=== PATIENT | female | born 1990 | race African-American/Black ===

== ENCOUNTER 2016-03-09 09:26 | Emergency (ER) | payer OTHER ==
[~2016-03-09] VITALS: Ht 154.9 cm; Wt 48.0 kg
[2016-03-09 09:29] VITALS: BP 124/70; PULSE 78; RESP 16; TEMP 97.8; O2SAT 100
[2016-03-09 09:51] VITALS: BP 131/59; PULSE 75; RESP 16; O2SAT 99
--- NOTE | 2016-03-09 10:07 | PD ---
HPI Chief Complaint: Complaint Time Seen by Provider: 10:00 Travel History International Travel<30 days: No Contact w/Intl Traveler<30days: No Traveled to known affect area: No History of Present Illness HPI Patient is a 25-year-old female who presents to emergency room with complaints of possible urinary tract infection. She reports that for the past 4 days, she has had increased dysuria, urinary urgency and frequency. Patient reports that she try to flush out her kidneys by drinking plenty of fluids, reports that she is still symptomatic. Patient reports that symptoms are worse today, and reports increased dysuria with urgency today. Patient reports that she has had history of urinary tract infections in the past, patient reports the symptoms feel exactly the same as when she was briefly diagnosed with urinary tract infection. Patient with no fevers or chills. Patient with no abdominal pain. Patient with no nausea or vomiting. Patient denies vaginal discharge or bleeding this time. PFSH Past Medical History Medical History: Denies Significant Hx Asthma: Yes Diminished Hearing: No Respiratory: Yes (ASTHMA) Tetanus Vaccination: < 5 Years ?: Unknown LMP: UNKNOWN : 0 Past Surgical History Surgical History: No Previous Surgery Family History Family History: Negative Social History Alcohol Use: No Tobacco Use: No Substance Use: No Allergies-Medications (Allergen,Severity, Reaction): Coded Allergies: No Known Allergies (Unverified , 03/09/16) Reported Meds & Prescriptions Reported Meds & Active Scripts Active No Active Prescriptions or Reported Medications Review of Systems General / Constitutional: No: Fever Eyes: No: Visual changes HENT: No: Headaches Cardiovascular: No: Chest Pain or Discomfort Respiratory: No: Shortness of Breath Gastrointestinal: No: Nausea, Vomiting, Diarrhea, Abdominal Pain Genitourinary: Positive: Urgency, Frequency, Dysuria, Hematuria, No: Hesitancy , Pelvic Pain, Flank Pain, Discharge, Vaginal Bleeding Musculoskeletal: No: Pain Skin: No Rash Neurologic: No: Weakness Psychiatric: No: Depression Endocrine: No: Polydipsia Hematologic/Lymphatic: No: Easy Bruising Physical Exam Narrative GENERAL: Well-appearing, no acute distress SKIN: Warm and dry. HEAD: Atraumatic. Normocephalic. ENT: Mucous membranes pink and moist. NECK: Trachea midline. No JVD. CARDIOVASCULAR: Regular rate and rhythm. No murmur appreciated. RESPIRATORY: No accessory muscle use. Clear to auscultation. Breath sounds equal bilaterally. GASTROINTESTINAL: Abdomen soft, non-tender, nondistended. Hepatic and splenic margins not palpable. MUSCULOSKELETAL: No obvious deformities. No clubbing. No cyanosis. No edema. Data Data Last Documented VS Vital Signs Date Time Temp Pulse Resp B/P Pulse Ox O2 Delivery O2 Flow Rate FiO2 03/09/16 09:51 75 16 131/59 99 03/09/16 09:29 97.8 Room Air Orders Urinalysis - C+S If Indicated (03/09/16 09:53) Ed Urine Pregnancytest Poc (03/09/16 09:53) Urine Culture (03/09/16 10:10) Labs Laboratory Tests Test 03/09/16 10:10 Urine Color YELLOW Urine Turbidity HAZY Urine pH 6.5 Urine Specific [place] 1.018 Urine Protein 30 mg/dL Urine Glucose (UA) NEG mg/dL Urine Ketones NEG mg/dL Urine Occult Blood LARGE Urine Nitrite NEG Urine Bilirubin NEG Urine Urobilinogen LESS THAN 2.0 MG/DL Urine Leukocyte Esterase LARGE Urine RBC /hpf Urine WBC /hpf Urine Squamous Epithelial 2 /hpf Cells Urine Bacteria RARE /hpf Urine Mucus FEW /lpf Microscopic Urinalysis Comment CULTURE INDICATED MDM Medical Decision Making Medical Screen Exam Complete: Yes Emergency Medical Condition: Yes Interpretation(s) Vital Signs Date Time Temp Pulse Resp B/P Pulse Ox O2 Delivery O2 Flow Rate FiO2 03/09/16 09:51 75 16 131/59 99 03/09/16 09:29 97.8 78 16 124/70 100 Room Air Differential Diagnosis UTI, cervicitis Narrative Course 25-year-old female who presents to emergency room for evaluation of possible UTI. Patient reports that she has been having increased dysuria, urinary urgency and frequency for the past 4 days. Patient reports that symptoms have been getting worse over the past couple days, patient reports that symptoms feel similar to when she's had urinary tract infections in the past. Patient here to see she has a urinary tract infection. Patient with no vaginal discharge or vaginal pain or abdominal pain at this time. UA ordered for evaluation of possible urinary tract infection. Patient with UTI and UA, will start patient on Macrobid. Discussed with patient need to follow up with cultures from today. Patient will follow-up with primary doctor and return to ER as needed. Diagnosis Primary Impression: UTI (urinary tract infection) Qualified Code: N30.01 - Acute cystitis with hematuria Patient Instructions: General Instructions Additional Instructions: Please take all antibiotics as prescribed. Please follow-up with primary care doctor and return to ER as needed Please follow-up with all CULTURES from today. Med/Other Pt SpecificInfo: Prescription(s) given Scripts Nitrofurantoin Monohydrate Macrocrystals (Macrobid)100 Mg [id number] Mg PO BID 10 Days Ref 0 Prov:Cinthia Byrd DO 03/09/16 Disposition: 01 DISCHARGE HOME Condition: Stable Cinthia Byrd DO Mar 09, 2016 10:07
[2016-03-09 10:37] LABS: BACTERIA, URINE RARE /hpf; BLOOD, URINE LARGE (NEG); COMMENT (UR) CULTURE INDICATED; CULTURE IF INDICATED CULTURE INDICATED; GLUCOSE,URINE NEG (NEG); KETONE, URINE NEG (NEG); MUCUS URINE FEW /lpf (OCC); NITRITE,URINE NEG (NEG); PH, URINE 6.5 (5.0-8.5); SQUAMOUS EPITHELIAL CELL URINE 2 /hpf (0-5); URINE COLOR YELLOW (YELLW/STRAW)
[2016-03-09] MEDS ORDERED: MACR100C2 PO (11:18)
[2016-03-09] MEDS ORDERED: NITROFURANTOIN MONOHYD MACROCR 100 MG CAP PO ONE (11:30)
== END 2016-03-09 11:35 | disposition home or self-care (01) ==
LOC: NEPA 09:26
DX: N39.0 Urinary tract infection, site not specified (principal); B96.20 Unspecified Escherichia coli [E. coli] as the cause of diseases classified elsewhere
CPT/HCPCS: 81001; 84703; 87077; 87086; 87186; 99283

== ENCOUNTER 2016-03-13 18:30 | Observation (INO) | payer OTHER ==
[~2016-03-13] VITALS: Ht 154.9 cm; Wt 48.0 kg
[~2016-03-13 18:30] MED LIST: MACR100C2 PO
[2016-03-13 18:36] VITALS: PULSE 108; RESP 34; O2SAT 97
[2016-03-13] MEDS ORDERED: RESP: ALBUTEROL 2.5 MG/IPRATROPIUM 0.5 MG NEB (SCH) ONE (18:39)
[2016-03-13 18:42] VITALS: O2SAT 100
[2016-03-13] MEDS: RESP: ALBUTEROL 2.5 MG/IPRATROPIUM 0.5 MG NEB (SCH) INH ×3 (18:42→18:45)
[2016-03-13] MEDS ORDERED: SODIUM CHLORIDE 0.9% FLUSH 5 ML FLUSH IVF PRN (18:45)
[2016-03-13] MEDS ORDERED: methylPREDNISolone SOD SUCC 125 MG/2 ML VIAL IVP ONE (18:45)
[2016-03-13 19:05] LABS: AUTOMATED NEUTROPHIL # 3.8 TH/MM3 (1.8-7.7); BASOPHIL % 0.7 % (0.0-2.0); EOSINOPHIL # 0.5 TH/MM3 (0-0.4); EOSINOPHIL % 6.6 % (0.0-4.0); HEMATOCRIT 40.6 % (35.0-46.0); HEMO FLAGS DIFF FINAL; LYMPH % 25.2 % (9.0-44.0); LYMPHOCYTE # 1.7 TH/MM3 (1.0-4.8); MEAN CELL VOLUME 88.3 FL (80.0-100.0); MEAN CORPUSCULAR HEMOGLOBIN 30.2 PG (27.0-34.0); MEAN CORPUSCULAR HGB CONC 34.2 % (32.0-36.0); NEUT % 54.5 % (16.0-70.0); PLATELET COUNT 277 TH/MM3 (150-450); RED CELL DISTRIBUTION WIDTH 12.9 % (11.6-17.2); WHITE BLOOD COUNT 6.9 TH/MM3 (4.0-11.0)
--- NOTE | 2016-03-13 19:12 | RADRPT ---
EXAM DATE/TIME: 03/13/2016 18:59 [facility] COMPARISON: No previous studies available for comparison. INDICATIONS : Respiratory distress for 2 days due to asthma. MEDICAL HISTORY : Asthma. SURGICAL HISTORY : None. ENCOUNTER: Initial ACUITY: 2 days PAIN SCORE: 2/10 LOCATION: Bilateral chest FINDINGS: A single view of the chest demonstrates the lungs to be symmetrically aerated without evidence of mas s, infiltrate or effusion. The cardiomediastinal contours are unremarkable. Osseous structures are intact. CONCLUSION: No acute disease. Silviano Miller MD FACR on March 13, 2016 at 19:11 Board Certified Radiologist. This report was verified electronically.
[2016-03-13 19:26] VITALS: BP 109/62; PULSE 127; RESP 22; TEMP 98.4; O2SAT 100
[2016-03-13 19:31] LABS: ANION GAP 9 MEQ/L (5-15)
[2016-03-13 19:33] LABS: ALKALINE PHOSPHATASE 65 U/L (45-117); ALT (GPT) 26 U/L (10-53); AST (GOT) 20 U/L (15-37); BICARBONATE 22.6 MEQ/L (21.0-32.0); BLOOD UREA NITROGEN 9 MG/DL (7-18); CHLORIDE 104 MEQ/L (98-107); GLOMERULAR FILTRATION RATE 94 ML/MIN (>89); POTASSIUM 3.8 MEQ/L (3.5-5.1); SODIUM (NA) 136 MEQ/L (136-145); TOTAL BILIRUBIN ADULT 0.7 MG/DL (0.2-1.0)
[2016-03-13 20:00] VITALS: O2SAT 98
[2016-03-13] MEDS ORDERED: LORazepam 2 MG/ML VIAL IV PUSH ONE (20:00)
[2016-03-13] MEDS ORDERED: RESP: ALBUTEROL 2.5 MG/IPRATROPIUM 0.5 MG NEB (SCH) NEB ONE (20:30)
[2016-03-13] MEDS ORDERED: SODIUM CHLOR 0.9% 1000 ML INJ 1,000 ML IV ONE (20:30)
[2016-03-13] MEDS ORDERED: ALBUTEROL SULFATE 90 MCG/ACT HFA 8 GM INHALER INH ONE (20:30)
[2016-03-13] MEDS ORDERED: INSPIREASE SPACER INH ONE (20:30)
[2016-03-13 21:20] LABS: BLOOD GAS VENOUS BASE EXCESS -3.5 mmol/L (-2-2); BLOOD GAS VENOUS HCO3 19 mmol/L (22-26); BLOOD GAS VENOUS O2 CONTENT 15.6 Vol % (9.0-17.0); BLOOD GAS VENOUS O2 HGB SAT 82 % (70-76); BLOOD GAS VENOUS PCO2 26 mmHg (44-48); BLOOD GAS VENOUS PO2 47 mmHg (35-40); BLOOD GAS VENOUS pH 7.49 (7.360-7.400); CRITICAL VALUE YES; TEMP CORR TO 98.6
[2016-03-13 21:21] LABS: FIO2 21 %; OXYGEN DEVICE ROOM AIR; STAT NO
[2016-03-13 21:49] VITALS: BP 111/61; PULSE 140; RESP 20; TEMP 98.9; O2SAT 100
--- NOTE | 2016-03-13 22:53 | PD ---
HPI Chief Complaint: Respiratory Distress Time Seen by Provider: 18:37 Travel History International Travel<30 days: No Contact w/Intl Traveler<30days: No Traveled to known affect area: No History of Present Illness HPI Patient is a 25-year-old female with a history of asthma presents to the emergency department with shortness of breath. Patient states she's been increasing shortness of breath over the past 2 days and is at a history of upper respiratory symptoms including cough and congestion. Denies any fevers. Patient does state that she gets Depo-Provera shot for control. Denies any long trips recently. On arrival patient is able to speak in only one or 2 words at a time very dyspneic appearing. PFSH Past Medical History Asthma: Yes Diminished Hearing: No Respiratory: Yes (ASTHMA) Tetanus Vaccination: < 5 Years Influenza Vaccination: Yes ?: Not LMP: DEPO : 0 Past Surgical History Surgical History: No Previous Surgery Social History Alcohol Use: No Tobacco Use: No Substance Use: No Allergies-Medications (Allergen,Severity, Reaction): Coded Allergies: No Known Allergies (Unverified , 03/09/16) Reported Meds & Prescriptions Reported Meds & Active Scripts Active Macrobid (Nitrofurantoin Monoh/Nitrofur Macro) 100 Mg Cap 100 Mg PO BID 10 Days Review of Systems Except as stated in HPI: all other systems reviewed are Neg Physical Exam Narrative GENERAL: Well-developed well-nourished in obvious respiratory distress. She is however protecting her own airway. Mostly nods and shakes her head stance are questions. SKIN: Warm and dry. HEAD: Atraumatic. Normocephalic. EYES: Pupils equal and round. No scleral icterus. No injection or drainage. ENT: No nasal bleeding or discharge. Mucous membranes pink and moist. NECK: Trachea midline. No JVD. CARDIOVASCULAR: Regular rate with tachycardia.. No murmur appreciated. 2+ bilateral equal pulses in all 4 cavities. RESPIRATORY: Intercostal and supraclavicular retractions, very faint breath sounds throughout her lung dominguez, inspiratory and expiratory wheezing. GASTROINTESTINAL: Abdomen soft, non-tender, nondistended. Hepatic and splenic margins not palpable. MUSCULOSKELETAL: No obvious deformities. No clubbing. No cyanosis. No edema. NEUROLOGICAL: Awake and alert. No obvious cranial nerve deficits. Motor grossly within normal limits. Normal speech. PSYCHIATRIC: Appropriate mood and affect; insight and judgment normal. Data Data Last Documented VS Vital Signs Date Time Temp Pulse Resp B/P Pulse Ox O2 Delivery O2 Flow Rate FiO2 03/13/16 21:49 98.9 140 20 111/61 100 Nasal Cannula 2 Orders Complete Blood Count With Diff (03/13/16 18:37) Comprehensive Metabolic Panel (03/13/16 18:37) Chest, Single Ap (03/13/16 18:37) Ecg Monitoring (03/13/16 18:37) Iv Access Insert/Monitor (03/13/16 18:37) Oximetry (03/13/16 18:37) Oxygen Administration (03/13/16 18:37) Methylprednisolone So Succ Inj (Solumedr (03/13/16 18:45) Albuterol-Ipratropium Neb (Duoneb Neb) (03/13/16 18:45) Sodium Chloride 0.9% Flush (Ns Flush) (03/13/16 18:45) Albuterol-Ipratropium Neb (Duoneb Neb) (03/13/16 18:39) D-Dimer (03/13/16 18:50) Blood Gas Venous (Vbg) (03/13/16 18:50) Lorazepam Inj (Ativan Inj) (03/13/16 20:00) Sodium Chlor 0.9% 1000 Ml Inj (Ns 1000 M (03/13/16 20:30) Albuterol-Ipratropium Neb (Duoneb Neb) (03/13/16 20:30) Albuterol Hfa Inh (Proair Hfa Inh) (03/13/16 20:30) Spacer/Device For Mdi (Inspirease For Md (03/13/16 20:30) Admit Order (Ed Use Only) (03/13/16 ) Labs Laboratory Tests Test 03/13/16 03/13/16 18:40 19:35 White Blood Count 6.9 TH/MM3 Red Blood Count 4.60 MIL/MM3 Hemoglobin 13.9 GM/DL Hematocrit 40.6 % Mean Corpuscular Volume 88.3 FL Mean Corpuscular Hemoglobin 30.2 PG Mean Corpuscular Hemoglobin 34.2 % Concent Red Cell Distribution Width 12.9 % Platelet Count 277 TH/MM3 Mean Platelet Volume 9.5 FL Neutrophils (%) (Auto) 54.5 % Lymphocytes (%) (Auto) 25.2 % Monocytes (%) (Auto) 13.0 % Eosinophils (%) (Auto) 6.6 % Basophils (%) (Auto) 0.7 % Neutrophils # (Auto) 3.8 TH/MM3 Lymphocytes # (Auto) 1.7 TH/MM3 Monocytes # (Auto) 0.9 TH/MM3 Eosinophils # (Auto) 0.5 TH/MM3 Basophils # (Auto) 0.0 TH/MM3 CBC Comment DIFF FINAL Differential Comment D-Dimer Quantitative (PE/DVT) LESS THAN 0.19 MG/L FEU Sodium Level 136 MEQ/L Potassium Level 3.8 MEQ/L Chloride Level 104 MEQ/L Carbon Dioxide Level 22.6 MEQ/L Anion Gap 9 MEQ/L Blood Urea Nitrogen 9 MG/DL Creatinine 0.90 MG/DL Estimat Glomerular Filtration 94 ML/MIN Rate Random Glucose 89 MG/DL Calcium Level 9.2 MG/DL Total Bilirubin 0.7 MG/DL Aspartate Amino Transf 20 U/L (AST/SGOT) Alanine Aminotransferase 26 U/L (ALT/SGPT) Alkaline Phosphatase 65 U/L Total Protein 8.5 GM/DL Albumin 3.9 GM/DL Blood Gas Puncture Site Blood Gas Patient Temperature 98.6 Venous Blood pH 7.49 Venous Blood Partial Pressure 26 mmHg CO2 Venous Blood Partial Pressure 47 mmHg O2 Venous Blood HCO3 19 mmol/L Venous Blood Oxygen Saturation 82 % Venous Blood Oxygen Content 15.6 Vol % Venous Blood Base Excess -3.5 mmol/L Oxygen Delivery Device ROOM AIR Blood Gas Inspired Oxygen 21 % MDM Medical Decision Making Medical Screen Exam Complete: Yes Emergency Medical Condition: Yes Differential Diagnosis TE, asthma exacerbation, pneumonia Narrative Course Patient was roomed in the emergency department, initially able to nod and shake her head only to answer questions was given DuoNeb 3 treatments as well as Solu -Medrol 125 mg IV. She began to be able to speak first in short phrases and then over time able to speak in full sentences. Her lung sounds improved significantly and now are clear with good air entry throughout all lung dominguez. Her saturation was maintained 100% on 2 L nasal cannula. She was given an additional 3 times DuoNeb. Chest x-ray was negative, d-dimer negative. Labs are reassuring. Patient remained tachycardic in the 120s to 140s. She was given a half a milligram of Ativan after her blood gas suggested respiratory alkalosis. This made her dizzy and woozy without decreasing her heart rate. She fluid challenge with a liter of fluid which also did not significant improve her heart rate. After an observation period of 3 hours in the emergency department it was determined that she would benefit from overnight observation given her level of tachycardia remaining after significant time since her last DuoNeb treatments. Discussed with Dr. Sutherland who is agreeable. Diagnosis Primary Impression: Asthma exacerbation Additional Impression: Tachycardia Admitting Information Admitting Physician Requests: Observation Condition: Stable Braulio Toney MD Mar 13, 2016 22:53
[2016-03-13] MEDS ORDERED: SODIUM CHLORIDE 0.9% FLUSH 5 ML FLUSH FLUSH PRN (23:00)
[2016-03-13] MEDS ORDERED: RESP: IPRATROPIUM 0.5 MG/2.5 ML NEB NEB PRN (23:00)
[2016-03-13] MEDS ORDERED: NALOXONE HCL 0.4 MG/ML AMP IV PRN (23:00)
[2016-03-14] MEDS: SODIUM CHLOR 0.9% 1000 ML INJ 1,000 ML IV SCH ×2 (00:04→08:46)
[2016-03-14] MEDS: methylPREDNISolone SOD SUCC 40 MG/1 ML VIAL IV PUSH SCH ×2 (00:05→06:04)
[2016-03-14 01:21] VITALS: BP 105/57
[2016-03-14 02:01] VITALS: BP 115/67; PULSE 111; RESP 18; TEMP 98.6; O2SAT 100
[2016-03-14] MEDS: RESP: IPRATROPIUM 0.5 MG/2.5 ML NEB NEB SCH ×3 (03:19→16:00)
[2016-03-14 04:31] LABS: AUTOMATED NEUTROPHIL # 6.1 TH/MM3 (1.8-7.7); BASOPHIL # 0.1 TH/MM3 (0-0.2); HEMATOCRIT 34.9 % (35.0-46.0); HEMO FLAGS DIFF FINAL; LYMPH % 4.6 % (9.0-44.0); LYMPHOCYTE # 0.3 TH/MM3 (1.0-4.8); MEAN CELL VOLUME 90.4 FL (80.0-100.0); MEAN CORPUSCULAR HEMOGLOBIN 29.5 PG (27.0-34.0); MEAN CORPUSCULAR HGB CONC 32.7 % (32.0-36.0); NEUT % 93.4 % (16.0-70.0); PLATELET COUNT 225 TH/MM3 (150-450); RED BLOOD COUNT 3.86 MIL/MM3 (4.00-5.30); RED CELL DISTRIBUTION WIDTH 13.2 % (11.6-17.2); WHITE BLOOD COUNT 6.6 TH/MM3 (4.0-11.0)
[2016-03-14 04:57] VITALS: PULSE 101
[2016-03-14 05:02] LABS: BICARBONATE 19.9 MEQ/L (21.0-32.0); POTASSIUM 3.6 MEQ/L (3.5-5.1)
[2016-03-14 08:00] VITALS: PULSE 89
[2016-03-14 08:24] VITALS: BP 109/55; PULSE 96; RESP 20; TEMP 98.5; O2SAT 99
[2016-03-14] MEDS ORDERED: PANTOPRAZOLE SOD 40 MG DELAYED RELEASE TAB PO SCH (09:00)
[2016-03-14] MEDS ORDERED: SODIUM CHLORIDE 0.9% FLUSH 5 ML FLUSH FLUSH SCH (09:00)
[2016-03-14] MEDS ORDERED: SODIUM CHLOR 0.9% 1000 ML INJ 1,000 ML IV ONE (10:15)
--- NOTE | 2016-03-14 10:22 | HHI.HP ---
[facility] No Primary Care Physician Admission Diagnosis ASTHMA EXACERBATION. Diagnoses: Chief Complaint: Shortness of breath Travel History International Travel<30 Days: No Contact w/Intl Traveler <30 Da: No Traveled to Known Affected Are: No History of Present Illness 25-year-old female with past medical history of asthma who presented with shortness of breath. The patient states that she's had a cold for the past 4 days. She has been having fevers and chills. Reports a fever of 101 at home. She has been having a cough productive with yellow phlegm. She has associated sore throat. Her abdominal muscles are sore from all the coughing. No chest pain. She has not had an asthma exacerbation in years. She has not been on any nebulizers or inhalers at home, but recently received a prescription for MDI with spacer. She had an episode of vomiting last night 1. She is tolerating oral intake, but appetite is currently poor. She had one episodes of loose stools last night. She denies any chest pain or abdominal pain. She was treated for UTI 4 days ago in the ED with Macrobid, symptoms improving. Has been on IV steroids overnight and she reports significant improvement, nearly at baseline Review of Systems Other 10 point review of systems performed and was negative except as stated in the history of present illness Past Family Social History Past Medical History Asthma Past Surgical History [place] teeth removed Reported Medications Currently has albuterol MDI and Macrobid prescriptions from the ED Allergies: Coded Allergies: No Known Allergies (Unverified , 03/09/16) Active Ordered Medications Current Medications Medications (Trade) Dose Ordered Sig/Bonnie Route Start Time Stop Time Status Last Admin (NS 1000 ml Inj) 1,000 ml @ 100 mls/hr Q10H IV 03/13/16 22:46 03/14/16 00:04 (NS Flush) 2 ml UNSCH PRN FLUSH 03/13/16 23:00 (NS Flush) 2 ml BID FLUSH 03/14/16 09:00 (Narcan Inj) 0.4 mg UNSCH PRN IV 03/13/16 23:00 (SoluMEDROL INJ) 40 mg Q6HR IV PUSH 03/14/16 00:00 03/14/16 06:04 (Protonix) 40 mg DAILY PO 03/14/16 09:00 03/14/16 09:35 Family History Mother has schizophrenia/bipolar, hypertension, and diabetes Social History Use to smoke cigarettes every now and then, none currently Occasional alcohol use Denies any drug use Physical Exam Vital Signs Vital Signs Date Time Temp Pulse Resp B/P Pulse Ox O2 Delivery O2 Flow Rate FiO2 03/14/16 08:24 98.5 96 20 109/55 99 03/14/16 04:57 101 03/14/16 02:01 98.6 111 18 115/67 100 03/14/16 01:21 108 18 105/57 99 Nasal Cannula 2 03/13/16 21:49 98.9 140 20 111/61 100 Nasal Cannula 2 03/13/16 20:00 98 Nasal Cannula 2.00 03/13/16 19:26 98.4 127 22 109/62 100 Nasal Cannula 2 03/13/16 18:42 100 Aerosol Mask 9 03/13/16 18:42 96 Aerosol Mask 9 03/13/16 18:41 97 Room Air 03/13/16 18:36 108 34 97 Physical Exam GENERAL: Well-developed well-nourished. In no acute distress. Appears comfortable on room air. SKIN: Warm and dry. No lesions noted. HEENT: Normocephalic. Pupils equal and round. Mucous membranes pink and moist. CARDIOVASCULAR: Regular rate and rhythm. No murmur appreciated. RESPIRATORY: No accessory muscle use. Clear to auscultation. Breath sounds equal bilaterally. No wheezing. GASTROINTESTINAL: Abdomen soft, non-tender, nondistended. Bowel sounds x4. MUSCULOSKELETAL: No obvious deformities. No clubbing or cyanosis. No edema. NEUROLOGICAL: Awake and alert. No focal neurological deficits. Moves upper and lower extremities spontaneously. Normal speech. PSYCHIATRIC: Appropriate mood and affect; insight and judgment normal. Laboratory Laboratory Tests Test 03/13/16 03/13/16 03/14/16 18:40 19:35 03:40 White Blood Count 6.9 6.6 Red Blood Count 4.60 3.86 Hemoglobin 13.9 11.4 Hematocrit 40.6 34.9 Mean Corpuscular Volume 88.3 90.4 Mean Corpuscular Hemoglobin 30.2 29.5 Mean Corpuscular Hemoglobin 34.2 32.7 Concent Red Cell Distribution Width 12.9 13.2 Platelet Count 277 225 Mean Platelet Volume 9.5 9.7 Neutrophils (%) (Auto) 54.5 93.4 Lymphocytes (%) (Auto) 25.2 4.6 Monocytes (%) (Auto) 13.0 1.0 Eosinophils (%) (Auto) 6.6 0.0 Basophils (%) (Auto) 0.7 1.0 Neutrophils # (Auto) 3.8 6.1 Lymphocytes # (Auto) 1.7 0.3 Monocytes # (Auto) 0.9 0.1 Eosinophils # (Auto) 0.5 0.0 Basophils # (Auto) 0.0 0.1 CBC Comment DIFF FINAL DIFF FINAL Differential Comment D-Dimer Quantitative (PE/DVT) LESS THAN 0.19 Sodium Level 136 139 Potassium Level 3.8 3.6 Chloride Level 104 105 Carbon Dioxide Level 22.6 19.9 Anion Gap 9 14 Blood Urea Nitrogen 9 5 Creatinine 0.90 1.09 Estimat Glomerular Filtration 94 75 Rate Random Glucose 89 273 Calcium Level 9.2 8.0 Total Bilirubin 0.7 Aspartate Amino Transf 20 (AST/SGOT) Alanine Aminotransferase 26 (ALT/SGPT) Alkaline Phosphatase 65 Total Protein 8.5 Albumin 3.9 Blood Gas Puncture Site Blood Gas Patient Temperature 98.6 Venous Blood pH 7.49 Venous Blood Partial Pressure 26 CO2 Venous Blood Partial Pressure 47 O2 Venous Blood HCO3 19 Venous Blood Oxygen Saturation 82 Venous Blood Oxygen Content 15.6 Venous Blood Base Excess -3.5 Oxygen Delivery Device ROOM AIR Blood Gas Inspired Oxygen 21 Result Diagram: 03/14/16 0340 03/14/16 0340 Imaging Last Impressions Chest X-Ray 03/13/16 1837 Signed Impressions: Service Date/Time: Sunday, March 13, 2016 18:59 - CONCLUSION: No acute disease. Silviano Miller MD FACR Assessment and Plan Problem List: (1) Asthma exacerbation ICD Code: J45.901 Status: Acute Assessment and Plan 25-year-old female with past medical history of asthma who presented with shortness of breath Asthma exacerbation: Improved with IV steroids, transition to by mouth taper. Continue ipratropium nebs scheduled and as needed. Continue albuterol MDI. URI/bronchitis: Chest x-ray reviewed and unremarkable. D-dimer negative. Likely triggered asthma exacerbation as above. With high fevers and asthma exacerbation, will treat with oral Levaquin. Dehydration: Creatinine 1.09, likely secondary to poor oral intake from infection as above. IVF bolus. Hyperglycemia: Random glucose increase from 89 to 273 on IV steroids, expect improvement with decrease steroids dose. Recent UTI: Improving on Macrobid. Previous culture with Escherichia coli sensitive to Macrobid and Cipro. Stop Macrobid and start Levaquin as above. DVT prophylaxis: Low risk, early ambulation GI prophylaxis: Protonix Disposition: Significantly improved overnight, possible discharge later today if patient remains stable and continues to improve. Discussed Condition With Patient with SO at bedside, Dr. Lynch Attending Statement The exam, history, and the medical decision-making described in the above note were completed with the assistance of the mid-level provider. I reviewed and agree with the findings presented. I attest that I had a [id number] encounter with the patient on the same day, and personally performed and documented my assessment and findings in the medical record. Mehdi Stone Mar 14, 2016 10:21 Micky Lynch MD Apr 02, 2016 03:17
[2016-03-14] MEDS ORDERED: LEVOFLOXACIN 750 MG TAB PO SCH (11:00)
[2016-03-14 11:40] VITALS: BP 108/62; PULSE 89; RESP 22; TEMP 97.8
[2016-03-14] MEDS ORDERED: ALBUAER3 INH (12:25)
[2016-03-14] MEDS ORDERED: PRED5PAK PO (12:25)
[2016-03-14] MEDS ORDERED: LEVA750T PO (12:25)
[2016-03-14] MEDS ORDERED: predniSONE 20 MG TAB PO SCH (21:00)
== END 2016-03-14 18:26 | disposition home or self-care (01) ==
LOC: NEPA 18:30 → NEDA 22:47 → NEPFCDU 03-14 01:40
PROVIDERS: ADMIT Internal Medicine; ATTEND Internal Medicine
DX: J45.901 Unspecified asthma with (acute) exacerbation (principal); R00.0 Tachycardia, unspecified; R05 Cough; R50.9 Fever, unspecified; J02.9 Acute pharyngitis, unspecified; R11.10 Vomiting, unspecified; E86.0 Dehydration; R73.9 Hyperglycemia, unspecified
CPT/HCPCS: 71010; 80048; 80053; 82805; 85025; 85379; 94640; 94664; 96361; 96374; 96375; 99285; G0378; J2060; J2920; J2930; J7030; J7644

== ENCOUNTER 2017-06-27 21:15 | Emergency (ER) | payer SELFPAY ==
[~2017-06-27 21:15] MED LIST changes: +ALBUAER3 INH; +LEVA750T PO; -MACR100C2 PO; +PRED5PAK PO
[2017-06-27 21:26] VITALS: BP 133/74; PULSE 74; RESP 16; TEMP 98.7; O2SAT 100
[2017-06-27] MEDS ORDERED: KETOROLAC TROMETHAMINE 60 MG/2 ML (IM) VIAL IM ONE (22:15)
[2017-06-27] MEDS ORDERED: TRAM50TA PO (22:51)
--- NOTE | 2017-06-27 23:07 | PD ---
HPI Chief Complaint: Headache Time Seen by Provider: 21:50 Travel History International Travel<30 days: No Contact w/Intl Traveler<30days: No Traveled to known affect area: No History of Present Illness HPI The patient was seen and examined in the presence of the nurse. She complains of headache. Location is left frontal just above the brow. No injury. No thunderclap onset. The headache comes and goes for the last 2 weeks. No fever. Symptom severity is mild to moderate. No alleviating factors. She says that she only came because her "mom made her". PFSH Past Medical History Asthma: Yes Blood Disorders: No Cancer: No Cardiovascular Problems: No Diminished Hearing: No Endocrine: No Genitourinary: No Immune Disorder: No Musculoskeletal: No Neurologic: No Reproductive: No Respiratory: Yes (ASTHMA) ?: Not LMP: 06/26/2017 : 0 Social History Alcohol Use: No Tobacco Use: No Substance Use: No Allergies-Medications (Allergen,Severity, Reaction): Coded Allergies: No Known Allergies (Unverified Adverse Reaction, Unknown, 06/27/17) Reported Meds & Prescriptions Reported Meds & Active Scripts Active Tramadol (Tramadol HCl) 50 Mg Tab 50 Mg PO Q6H PRN Proair Hfa 8.5 GM Inh (Albuterol Sulfate) 90 Mcg/Act Aer 2 Puff INH Q4-6H PRN 108 mcg/actuation Prednisone (21) 5 mg tab Dose Pack (Prednisone) 5 Mg Dspk 5 Mg PO DIRECTED Levaquin (Levofloxacin) 750 Mg Tab 750 Mg PO Q24H Review of Systems General / Constitutional: No: Fever HENT: Positive: Headaches Cardiovascular: No: Chest Pain or Discomfort Physical Exam Narrative GENERAL: Well-nourished, well-developed patient in no apparent distress. SKIN: Focused skin assessment reveals no rash and nodules. Skin is Warm and dry. HEAD: Atraumatic. Normocephalic. EYES: Pupils equal and round. No scleral icterus. No injection or drainage. ENT: No nasal bleeding or discharge. Mucous membranes pink and moist. NECK: Trachea midline. No JVD. CARDIOVASCULAR: Regular rate and rhythm. No murmur appreciated. RESPIRATORY: No accessory muscle use. Clear to auscultation. Breath sounds equal bilaterally. GASTROINTESTINAL: Abdomen soft, non-tender, nondistended. Hepatic and splenic margins not palpable. MUSCULOSKELETAL: No obvious deformities. No clubbing. No cyanosis. No edema. NEUROLOGICAL: Awake and alert. No obvious cranial nerve deficits. Motor grossly within normal limits. Normal speech. PSYCHIATRIC: Appropriate mood and affect; insight and judgment normal. Data Data Last Documented VS Vital Signs Date Time Temp Pulse Resp B/P (MAP) Pulse Ox O2 Delivery O2 Flow Rate FiO2 06/27/17 21:26 98.7 74 16 133/74 (93) 100 Orders Orders Ketorolac Inj (Toradol Inj) (06/27/17 22:15) [facility] Medical Decision Making Medical Screen Exam Complete: Yes Emergency Medical Condition: Yes Medical Record Reviewed: Yes Differential Diagnosis Differential diagnosis includes migraine, tension headache, cluster headache, meningitis. Narrative Course I have reviewed the patient's electronic medical record. She was here for headaches in 2014 Patient looks clinically well with normal neurologic exam. No red flags to suggest emergent imaging is indicated I gave her Toradol injection I gave her a prescription for a few tramadol The patient was advised to follow up with their physician and return if they worsen. Diagnosis Primary Impression: Headache Qualified Codes: R51 - Headache Additional Instructions: The patient was advised to follow up with their physician and return if they worsen. The patient was warned about potential sedation for the medications they will receive on prescription. Med/Other Pt SpecificInfo: Prescription(s) given Scripts Tramadol (Tramadol) 50 Mg Tab 50 MG PO Q6H Y for PAIN, #12 TAB 0 Refills Prov: Damian Hampton MD 06/27/17 Disposition: 01 DISCHARGE HOME Condition: Stable Damian Hampton MD June 27, 2017 23:07
== END 2017-06-27 23:22 | disposition home or self-care (01) ==
LOC: NEPD 21:15
DX: R51 Headache (principal)
CPT/HCPCS: 96372; 99283; J1885